=== PATIENT | male | born 1960 | race Caucasian/White ===

== ENCOUNTER 2017-02-11 10:55 | Emergency (ER) | payer BC ==
[~2017-02-11] VITALS: Ht 182.9 cm; Wt 81.8 kg
[~2017-02-11 10:55] MED LIST: ATIVAN 1MG T1 MG/TAB PO; ATIVAN 2MG/ML2 MG/ML IM; CELEBREX 200MG200 MG PO; FOLIC ACID 11 MG/TA1 PO; MUCOMYST PO; NATURE'S BLEND100 M2 PO; NO HOME MEDICATIONS; PRINIVIL40 MG PO; THERAGRAN TAB1 UDTAB PO; TYLENOL EXTRA500 M1 PO; UNABLE
[2017-02-11 10:58] VITALS: BP 152/97; TEMP 98.7
[2017-02-11 11:39] LABS: BASO % 0.3 % (0.0-2.0); EOS # 0.1 (0.0-0.7); EOS % 1.2 % (0-4.0); GRAN # 3.8 (1.4-6.5); GRAN % 63.3 % (42.2-75.2); HEMATOCRIT 46.7 % (42.0-52.0); LYMPH # 1.7 (1.2-3.4); LYMPH % 27.2 % (20.0-51.0); MEAN CELL VOLUME 90 fl (80.0-100.0); MEAN CORPUSCULAR HEMOGLOBIN 31 pg (27.0-31.0); MEAN CORPUSCULAR HGB CONC 34 g/dl (33.0-37.0); MEAN PLATELET VOLUME 10.4 fl (7.4-10.4); MONO # 0.5 (0.1-0.6); MONO % 7.8 % (1.7-9.3); PLATELET COUNT 163 K/mm3 (130-400); RED BLOOD COUNT 5.22 M/mm3 (4.20-5.60); REDCELL DISTRIBUTION WIDTH-CV 13.4 % (11.5-14.5); WHITE BLOOD COUNT 6.1 K/mm3 (4.8-10.8)
[2017-02-11 11:57] LABS: ADJUSTED CALCIUM 9.7 mg/dL (8.4-10.2); ALANINE AMINOTRANSFERASE 86 U/L (21-72); ALBUMIN 4.6 gm/dL (3.5-5.0); ALKALINE PHOSPHATASE 65 U/L (50-136); ANION GAP 13 mmol/L (7-16); BILIRUBIN,TOTAL 0.7 mg/dL (0.0-1.0); BLOOD UREA NITROGEN 5 mg/dL (9-20); CALCIUM 10.2 mg/dL (8.4-10.2); CARBON DIOXIDE 26 mmol/L (22-30); CHLORIDE 101 mmol/L (98-107); CREATININE, serum 0.65 mg/dL (0.66-1.25); GLUCOSE 99 mg/dL (74-106); POTASSIUM 4.3 mmol/L (3.4-5.0); SODIUM 140 mmol/L (137-145); TOTAL PROTEIN 7.9 gm/dL (6.4-8.2)
[2017-02-11 12:08] LABS: ACETAMINOPHEN < 10 ug/mL (10-30); SALICYLATE < 1.0 mg/dL
[2017-02-11 12:31] LABS: AMPHETAMINE URINE NEGATIVE; BARBITURATES URINE NEGATIVE; BENZODIAZEPINES URINE NEGATIVE; BUPRENORPHINE URINE NEGATIVE; METHADONE URINE NEGATIVE; OPIATES URINE NEGATIVE; OXYCODONE URINE NEGATIVE; PHENCYCLIDINE URINE NEGATIVE; PROPOXYPHENE URINE NEGATIVE; THC CANNABINOIDS URINE NEGATIVE
[2017-02-11 13:59] VITALS: PULSE 89
== END 2017-02-11 13:59 | disposition home or self-care (01) ==
LOC: COL.ER 10:55
PROVIDERS: Emergency Medicine; Physician Assistant
DX: F32.9 Major depressive disorder, single episode, unspecified (principal); F10.20 Alcohol dependence, uncomplicated; I10 Essential (primary) hypertension; F17.210 Nicotine dependence, cigarettes, uncomplicated; Y90.0 Blood alcohol level of less than 20 mg/100 ml

== ENCOUNTER 2017-08-18 09:14 | Emergency (ER) | payer BC ==
[~2017-08-18] VITALS: Ht 182.9 cm; Wt 84.1 kg
[2017-08-18 09:19] VITALS: TEMP 96
[2017-08-18 09:47] LABS: BASO % 0.5 % (0.0-2.0); EOS # 0.1 (0.0-0.7); EOS % 1.4 % (0-4.0); GRAN # 3.2 (1.4-6.5); GRAN % 58.8 % (42.2-75.2); HEMATOCRIT 44.4 % (42.0-52.0); HEMOGLOBIN 15.2 g/dl (13.5-18.0); LYMPH # 1.6 (1.2-3.4); LYMPH % 29.7 % (20.0-51.0); MEAN CELL VOLUME 91 fl (80.0-100.0); MEAN CORPUSCULAR HEMOGLOBIN 31 pg (27.0-31.0); MEAN CORPUSCULAR HGB CONC 34 g/dl (33.0-37.0); MONO # 0.5 (0.1-0.6); MONO % 9.4 % (1.7-9.3); PLATELET COUNT 119 K/mm3 (130-400); RED BLOOD COUNT 4.87 M/mm3 (4.20-5.60); WHITE BLOOD COUNT 5.5 K/mm3 (4.8-10.8)
[2017-08-18 09:58] LABS: ADJUSTED CALCIUM 9.5 mg/dL (8.4-10.2); ALBUMIN 4.4 gm/dL (3.5-5.0); BILIRUBIN,TOTAL 0.9 mg/dL (0.0-1.0); CALCIUM 9.8 mg/dL (8.4-10.2); CREATININE, serum 0.7 mg/dL (0.66-1.25); POTASSIUM 3.9 mmol/L (3.4-5.0); TOTAL PROTEIN 7.5 gm/dL (6.4-8.2)
[2017-08-18 13:12] LABS: COLLECTION METHOD CLEAN CATCH
[2017-08-18 13:23] LABS: MUCOUS Present /lpf; PH 6 (5-8); SQUAMOUS EPITHELIAL None Seen /hpf; URINE APPEARANCE Clear; URINE BACTERIA None Seen /hpf; URINE BILIRUBIN Negative (NEGATIVE); URINE BLOOD Negative (NEGATIVE); URINE COLOR Amber; URINE GLUCOSE Negative (NEGATIVE); URINE KETONE 2+ (NEGATIVE); URINE LEUKOCYTE ESTERASE Negative (NEGATIVE); URINE PROTEIN(semi-quant) 1+ (NEGATIVE); URINE RBC 0-2 /hpf; URINE WBC 0-2 /hpf
[2017-08-18] MEDS ORDERED: NORCO 325 MG-51 TAB PO (14:32)
[2017-08-18 15:06] VITALS: BP 149/87; PULSE 58
== END 2017-08-18 15:08 | disposition home or self-care (01) ==
LOC: COL.ER 09:14
PROVIDERS: Emergency Medicine
DX: R10.9 Unspecified abdominal pain (principal); F41.9 Anxiety disorder, unspecified; F17.210 Nicotine dependence, cigarettes, uncomplicated
CPT/HCPCS: J1885; J2270; J2405; J7030

== ENCOUNTER 2018-07-01 06:00 | Day surgery (SDC) | payer BC ==
[~2018-07-01] VITALS: Ht 182.9 cm; Wt 76.4 kg
[~2018-07-01 06:00] MED LIST changes: +NORCO 325 MG-51 TAB PO
[2018-07-01 06:20] VITALS: BP 118/77; PULSE 63; TEMP 98.4
[2018-07-01] MEDS ORDERED: PRINZIDE 12.5 M1 TA1 PO (06:20)
[2018-07-01 07:30] VITALS: BP 99/63; PULSE 57
== END 2018-07-01 08:15 | disposition home or self-care (01) ==
LOC: SDCO 06:00
DX: Z12.11 Encounter for screening for malignant neoplasm of colon (principal); B18.2 Chronic viral hepatitis C; D69.6 Thrombocytopenia, unspecified; F41.9 Anxiety disorder, unspecified; F32.9 Major depressive disorder, single episode, unspecified; Z83.71 Family history of colonic polyps; Z86.010 Personal history of colon polyps; R94.5 Abnormal results of liver function studies
CPT/HCPCS: J2250; J2405; J3010; J7030

== ENCOUNTER → 2018-07-29 | Outpatient (CLI) | payer BC ==
[~2018-07-29] VITALS: Ht 182.9 cm; Wt 78.9 kg
[2018-07-29] VITALS (10 sets, daily range): BP systolic 115–138; BP diastolic 68–81; PULSE 52–72
[~2018-07-29] MED LIST changes: +PRINZIDE 12.5 M1 TA1 PO
[2018-07-29 10:27] LABS: PROTHROMBIN TIME 11.6 SECONDS (9.7-12.8)
== END ==
LOC: COL.RAD 09:41
PROVIDERS: Physician Assistant
DX: B18.2 Chronic viral hepatitis C (principal); D69.6 Thrombocytopenia, unspecified

== ENCOUNTER 2019-06-15 10:06 | Emergency (ER) | payer BC ==
[~2019-06-15] VITALS: Ht 182.9 cm; Wt 75.5 kg
[2019-06-15 10:54] LABS: HEMATOCRIT 39.1 % (42.0-52.0); HEMOGLOBIN 13.5 g/dl (13.5-18.0); MEAN CELL VOLUME 90 fl (80.0-100.0); MEAN CORPUSCULAR HEMOGLOBIN 31 pg (27.0-31.0); MEAN CORPUSCULAR HGB CONC 35 g/dl (33.0-37.0); MEAN PLATELET VOLUME 11.6 fl (7.4-10.4); PLATELET COUNT 96 K/mm3 (130-400); RED BLOOD COUNT 4.35 M/mm3 (4.20-5.60); REDCELL DISTRIBUTION WIDTH-CV 14.1 % (11.5-14.5)
[2019-06-15 11:09] LABS: BILIRUBIN,TOTAL 1.1 mg/dL (0.0-1.0); C-REACTIVE PROTEIN 6.1 mg/dL (0.0-0.9); CALCIUM 9.4 mg/dL (8.4-10.2); CREATININE, serum 0.76 (0.66-1.25); POTASSIUM 3.6 mmol/L (3.4-5.0); TOTAL PROTEIN 7.2 gm/dL (6.4-8.2)
[2019-06-15 11:15] LABS: LYMPHOCYTE 3 % (20.0-51.0); MYELOCYTE 1 % (0-0); NEUTROPHILS 93 % (42.0-75.2); PLATELET ESTIMATE DECREASED (NORMAL)
[2019-06-15] MEDS ORDERED: DOXYCYCLINE 10100 MG PO (12:51)
[2019-06-15 13:03] VITALS: BP 116/67; PULSE 68; TEMP 98.2
== END 2019-06-15 13:18 | disposition home or self-care (01) ==
LOC: COL.ER 10:06
PROVIDERS: Physician Assistant
DX: L03.114 Cellulitis of left upper limb (principal); I10 Essential (primary) hypertension; B19.20 Unspecified viral hepatitis C without hepatic coma; F17.210 Nicotine dependence, cigarettes, uncomplicated; F12.90 Cannabis use, unspecified, uncomplicated; Z98.890 Other specified postprocedural states
CPT/HCPCS: J1885; J2405; J7030

== ENCOUNTER → 2020-08-27 | Day surgery (SDC) | payer BC ==
[~2020-08-27] VITALS: Ht 182.9 cm; Wt 78.3 kg
[~2020-08-27] MED LIST changes: +BENTYL 10MG10 MG/CAP PO; +CEPHALEXIN500 M1 PO; +DOXYCYCLINE 10100 MG PO; +PRINIVIL20 MG PO; +PROTONIX 40MG T40 MG PO
[2020-08-27 07:07] VITALS: BP 133/78; PULSE 69; TEMP 97.8
[2020-08-27 09:05] VITALS: BP 122/74; PULSE 59
--- NOTE | 2020-08-27 09:05 | NUR ---
Patient returns to bay 4 per cart and transfers from cart to recliner with one person assist. IV fluids continue to infuse and site is free of redness. Temp 98.0. Denies nausea or difficulty swallowing. Call light in reach.
[2020-08-27 09:20] VITALS: BP 124/78; PULSE 56
--- NOTE | 2020-08-27 09:20 | NUR ---
Dr. Beauchamp here to talk with the patient and all questions answered.
[2020-08-27 09:35] VITALS: BP 128/73; PULSE 61
--- NOTE | 2020-08-27 09:35 | NUR ---
IV discontinued and site is free of redness. Patient dresses self.
--- NOTE | 2020-08-27 09:47 | NUR ---
Dismissal instructions given and voices understanding of these. Patient dismissed to home driven by daughter and dismissal instructions in hand.
== END ==
LOC: SDCO 06:52
DX: K21.00 Gastro-esophageal reflux disease with esophagitis, without bleeding (principal); K29.30 Chronic superficial gastritis without bleeding; K64.8 Other hemorrhoids; D50.9 Iron deficiency anemia, unspecified; I10 Essential (primary) hypertension; F17.210 Nicotine dependence, cigarettes, uncomplicated; F32.9 Major depressive disorder, single episode, unspecified; F41.9 Anxiety disorder, unspecified; Z20.828 Contact with and (suspected) exposure to other viral communicable diseases
CPT/HCPCS: J2704; J7030

== ENCOUNTER 2023-07-02 05:23 | Day surgery (SDC) | payer MEDICARE ==
[~2023-07-02] VITALS: Ht 182.9 cm; Wt 81.6 kg
[~2023-07-02 05:23] MED LIST changes: +MOTRIN 600600 MG/TAB PO
[2023-07-02] MEDS ORDERED: MOBIC 7.5MG7.5 MG PO (05:36)
[2023-07-02] MEDS ORDERED: PRILOTC (05:36)
[2023-07-02] MEDS ORDERED: CENTRUM SILVER1 TAB (05:37)
[2023-07-02 07:40] VITALS: BP 132/76; PULSE 64; TEMP 97.4
[2023-07-02 07:55] VITALS: BP 138/79; PULSE 58
[2023-07-02 07:59] VITALS: BP 152/88; PULSE 63; TEMP 97.2
--- NOTE | 2023-07-02 08:00 | NUR ---
0740 RETURNS TO ROOM 1 PER CART. AWAKE, ALERT. RESP UNLABORED. AMBULATES TO RECLINER WITH STANDBY ASSIST. VITAL SIGNS OBTAINED. ABD SOFT. DENIES ABD PAIN OR NAUSEA. CALL LIGHT AT SIDE. 0745 TOLERATES WATER WITHOUT NAUSEA. DISCHARGE INSTRUCTIONS REVIEWED. PATIENT VERBALIZES UNDERSTANDING. COPY PROVIDED IN DISCHARGE FOLDER [id number] DR. ROMO HERE TO VISIT WITH PATIENT [id number] PATIENT DRESSES SELF
--- NOTE | 2023-07-02 08:08 | NUR ---
0527 PT AMBULATORY TO BAY 1 WITH STEADY GAIT, BREATHING EVEN AND UNLABORED. PT ALERT AND ORIENTED. CONSENTS REVIEWED AND SIGNED BY PT. IV ESTABLISHED. LR INFUSING VIA GRAVITY AT KVO. CALL LIGHT IN REACH.
== END 2023-07-02 08:03 | disposition home or self-care (01) ==
LOC: SDCO 05:23
DX: Z12.11 Encounter for screening for malignant neoplasm of colon (principal); F17.210 Nicotine dependence, cigarettes, uncomplicated; Z86.010 Personal history of colon polyps
CPT/HCPCS: J2704; J7120

== ENCOUNTER 2024-04-12 20:42 | Inpatient (IN) | payer MEDICARE ==
[~2024-04-12] VITALS: Ht 182.9 cm; Wt 80.4 kg
[~2024-04-12 20:42] MED LIST changes: +CENTRUM SILVER1 TAB; +MOBIC 7.5MG7.5 MG PO; +PRILOTC PO
[2024-04-12] MEDS ORDERED: HYDROmorphone 0.5 MG/0.5 ML SYRINGE IV ONE ×2 (21:00→22:00)
[2024-04-12] MEDS ORDERED: NS 500 ML IV ONE (21:00)
[2024-04-12] MEDS ORDERED: Ondansetron 4 MG/2 ML VIAL IV ONE (21:00)
[2024-04-12 21:06] LABS: BASO % 0.2 % (0.0-2.0); EOS % 0.1 % (0.0-4.0); GRAN # 12.9 K/mm3 (1.4-6.5); GRAN % 81.5 % (42.2-75.2); HEMATOCRIT 30.3 % (42.0-52.0); HEMOGLOBIN 9.4 g/dl (13.5-18.0); LYMPH # 1.4 K/mm3 (1.2-3.4); LYMPH % 8.6 % (20.0-51.0); MEAN CELL VOLUME 76 fl (80.0-100.0); MEAN CORPUSCULAR HEMOGLOBIN 23 pg (27-31); MEAN CORPUSCULAR HGB CONC 31 g/dl (33.0-37.0); MEAN PLATELET VOLUME 10.3 fl (7.4-10.4); MONO # 1.5 K/mm3 (0.1-0.6); MONO % 9.2 % (1.7-9.3); PLATELET COUNT 469 K/mm3 (130-400); RED BLOOD COUNT 4.01 M/mm3 (4.20-5.60); REDCELL DISTRIBUTION WIDTH-CV 18.6 % (11.5-14.5)
[2024-04-12 21:18] LABS: ALBUMIN 2.4 g/dL (3.4-4.8); BILIRUBIN,TOTAL 1.1 mg/dL (0.2-1.2); CALCIUM 9.3 mg/dL (8.4-10.2); CREATININE, serum 0.69 mg/dL (0.72-1.25); POTASSIUM 4.1 mEq/L (3.5-4.5); TOTAL PROTEIN 6.9 g/dl (6.2-8.1)
[2024-04-12] MEDS ORDERED: oxyCODONE/Acetaminophen 7.5-325 MG TAB PO ONE (22:00)
[2024-04-12] MEDS ORDERED: NS 1,000 ML IV ONE (22:00)
[2024-04-12 22:20] LABS: INR 1.9 (0.8-3.0); PROTHROMBIN TIME 20.5 SECONDS (9.7-12.8)
[2024-04-12 22:23] LABS: PARTIAL THROMBOPLASTIN TIME 35.2 SECONDS (26.0-37.0)
[2024-04-12 23:10] LABS: ARTERIAL BLD GAS O2 SATURATION 89.7 % (92-100); ARTERIAL BLD GAS TCO2 CT 23.6; ARTERIAL BLOOD GAS BASE EXCESS -0.9 (-2-2); ARTERIAL BLOOD GAS HCO3 22.6 meq/L (22-26); ARTERIAL BLOOD GAS PCO2 33.2 mmHg (35-45); ARTERIAL BLOOD GAS PO2 62.4 mmHg (80-100); ARTERIAL BLOOD GAS pH 7.45 (7.35-7.45)
[2024-04-13] VITALS (9 sets, daily range): BP systolic 119–133; BP diastolic 72–78; PULSE 80–109; TEMP 98.2–100
[2024-04-13] MEDS ORDERED: Cefepime 1 G in Water For Injection,Sterile 10 ML IV ONE (00:15)
[2024-04-13] MEDS ORDERED: Iohexol 300 - 100 ML VIAL IV ONE (01:07)
[2024-04-13 02:35] LABS: COLLECTION METHOD CLEAN CATCH
[2024-04-13 03:01] LABS: PH 5.5 (5.0-8.5); URINE APPEARANCE CLEAR (CLEAR/HAZY); URINE BLOOD NEGATIVE (NEGATIVE); URINE COLOR Dark Yellow (YELLOW); URINE GLUCOSE NEGATIVE (NEGATIVE); URINE KETONE NEGATIVE (NEGATIVE); URINE NITRATE NEGATIVE (NEGATIVE); URINE PROTEIN(semi-quant) TRACE (NEGATIVE)
[2024-04-13] MEDS ORDERED: Albuterol/Ipratropium 3 MG-0.5 MG/3 ML Neb Soln IH ONE (03:15)
[2024-04-13] MEDS ORDERED: Albuterol/Ipratropium 3 MG-0.5 MG/3 ML Neb Soln IH PRN (04:45)
--- NOTE | 2024-04-13 05:37 | NUR ---
REPORT RECIEVED FROM GHULAM HASSAN-ED
[2024-04-13] MEDS ORDERED: ELIQUIS 5MG PO (05:42)
[2024-04-13] MEDS ORDERED: ULTRAM 50MG TAB50 MG PO (05:43)
[2024-04-13] MEDS ORDERED: traMADol 50 MG TAB PO PRN (05:45)
[2024-04-13] MEDS ORDERED: Cefepime 1 G in Water For Injection,Sterile 10 ML IV SCH (07:30)
[2024-04-13] MEDS ORDERED: LR 1,000 ML IV SCH (07:30)
--- NOTE | 2024-04-13 07:33 | NUR ---
awake resting in bed, bedside shift report received from Nora, RN
[2024-04-13] MEDS ORDERED: Morphine 4 MG/ML VIAL IV PRN (07:45)
[2024-04-13] MEDS ORDERED: Albuterol/Ipratropium 3 MG-0.5 MG/3 ML Neb Soln IH SCH (08:00)
[2024-04-13] MEDS ORDERED: Pantoprazole 40 MG in NS 10 ML IV SCH (09:00)
[2024-04-13] MEDS ORDERED: Apixaban 5 MG TABLET PO SCH (09:00)
--- NOTE | 2024-04-13 10:15 | NUR ---
resting in bed, c/o pain to upper left side and back, medicated with morphine 2mg slow IV, full assessment completed, see interventions for further info
--- NOTE | 2024-04-13 11:08 | NUR ---
resting in bed with eyes closed, no grimacing or moaning at this time
[2024-04-13] MEDS ORDERED: fentaNYL 25 MCG 72 HR PATCH TD SCH (12:00)
[2024-04-13] MEDS ORDERED: oxyCODONE 5 MG TAB PO PRN (12:00)
--- NOTE | 2024-04-13 12:00 | NUR ---
Dr Zheng and care team in to see patient, discussed pain managment and fentanyl patch 25mcg placed, sprague cath discontinued and tolerated well,
--- NOTE | 2024-04-13 14:30 | NUR ---
c/o pain 01/25 and medicated with roxicodone 5mg po, had small amount lunch, watching TV
--- NOTE | 2024-04-13 15:57 | NUR ---
Technical Applications Specialist and student, Adrianna met with patient to discuss discharge planning. Patient lives alone in [place] and sees Dr. Lewis for primary care. Patient gets medications from [facility] and does not use any DME. Patient is not on oxygen normally however is currently requiring it. Patient is normally independent with ADLS and plans to return home at time of discharge. Danny does not have DPOA-HC but stated he will consider creating one during this hospital stay. Patient has two daughters, Barbie and Rakel. Patient's sister, Cristela (ph#[phone]) is listed as patient's contact and patient stated she drives him to his medical appointments. Discharge Plan: Home, currently on oxygen, may need DPOA-HC
--- NOTE | 2024-04-13 18:07 | NUR ---
ambulated into bathroom and voided 200ml clear dark jeanmarie urine
--- NOTE | 2024-04-13 18:14 | NUR ---
FEED HOUSE SUPERVISOR performed post void residual and revealed approx 700ml urine
--- NOTE | 2024-04-13 18:20 | NUR ---
attempted to call PHYLLIS Woody without an answer
--- NOTE | 2024-04-13 18:22 | NUR ---
spoke with PHYLLIS Woody regarding post void residual, unsure if this is urine or if there is something more that is showing up, will continue to monitor urinary output
--- NOTE | 2024-04-13 18:59 | NUR ---
bedside shift repeort given to Nora, RN
--- NOTE | 2024-04-13 19:25 | NUR ---
REPORT RECIEVED FROM MARLIN. 2 NURSE VERIFICATION OF FENTANLY PATCH LOCATION POSTERIOR LT SHOULDER VISIABLE AND INTACT.
--- NOTE | 2024-04-13 19:43 | NUR ---
PATIENT SITTING ON BEDSIDE EATING DINNER TRAY. AXO X4 AND CHEERFUL. 7ML/HR LR RUNNING IN RT AC. LUNG SOUNDS CLEAR. PATIENT DENIES PAIN OR SOA, HOWEVER MCKEON COULD BE OBSERVED DURING ASSESMENT QUESTIONS. PATIENT STILL APPEARS TO BE SLIGHTLY JAUNDICE. VS ARE WNL. CALL LIGHT WITHIN REACH.
--- NOTE | 2024-04-13 23:15 | NUR ---
PATIENT C/O 05/27 UPPER GASTRIC AND LT FLANK AND BACK PAIN. PRN SYLVAIN ADMINISTERED.
[2024-04-14] VITALS (13 sets, daily range): BP systolic 112–130; BP diastolic 69–77; PULSE 90–98; TEMP 98.1–98.8
--- NOTE | 2024-04-14 00:20 | NUR ---
PATIENT PAIN UNRELIEVED STILL RATE 05/27. PER PARAMETERS, ADDITIONAL 5MG DOSE SYLVAIN ADMINISTERED.
--- NOTE | 2024-04-14 01:52 | NUR ---
PATIENT NOW RESTING. IVF HAS BEEN SALINE LOCKED.
--- NOTE | 2024-04-14 02:13 | NUR ---
PATIENT VOIDED 300ML DARK KIM URINE.
[2024-04-14 07:27] LABS: BASO % 0.2 % (0.0-2.0); EOS % 0.4 % (0.0-4.0); GRAN # 9.4 K/mm3 (1.4-6.5); GRAN % 83.7 % (42.2-75.2); LYMPH # 0.8 K/mm3 (1.2-3.4); LYMPH % 7.1 % (20.0-51.0); MEAN CELL VOLUME 76 fl (80.0-100.0); MEAN CORPUSCULAR HGB CONC 31 g/dl (33.0-37.0); MONO # 0.9 K/mm3 (0.1-0.6); MONO % 8.2 % (1.7-9.3); PLATELET COUNT 375 K/mm3 (130-400); RED BLOOD COUNT 3.77 M/mm3 (4.20-5.60); REDCELL DISTRIBUTION WIDTH-CV 18.8 % (11.5-14.5)
[2024-04-14 07:40] LABS: HEMATOCRIT 28.7 % (42.0-52.0); HEMOGLOBIN 8.9 g/dl (13.5-18.0); MEAN CORPUSCULAR HEMOGLOBIN 24 pg (27-31)
[2024-04-14 07:45] LABS: ALBUMIN 2.4 g/dL (3.4-4.8); CALCIUM 8.6 mg/dL (8.4-10.2); CREATININE, serum 0.63 mg/dL (0.72-1.25); TOTAL PROTEIN 6.9 g/dl (6.2-8.1)
--- NOTE | 2024-04-14 09:00 | NUR ---
PATIENT LAYING IN BED UPON ENTERING ROOM, REPORTS 8/10 PAIN TO ABDOMEN, PRN MEDICATION PROVIDED PER eMAR, FENTANYL PATCH DOSE INCREASED. NEW PATCH PLACED TO LUE AND OLD PATCH REMOVED AND WASTED. SHIFT ASSESSMENT COMPLETED. 2L O2 VIA NC. REPORTS SOB, STATES IT HAS NOT WORSENED SINCE ADMISSION. DENIES ANY ADDITIONAL NEEDS AT THIS TIME. CALL LIGHT WITHIN REACH, WILL CONTINUE TO MONITOR.
[2024-04-14] MEDS ORDERED: fentaNYL 50 MCG 72 HR PATCH TD SCH (10:00)
[2024-04-14] MEDS ORDERED: fentaNYL Patch Removal/Drugbuster TD SCH (10:00)
--- NOTE | 2024-04-14 20:40 | NUR ---
PATIENT UP WALKING IN ROOM WITH TV ON WITH NO FAMILY PRESENT WTIH NO ACUTE DISTRESS NOTED. PATIENT ON 2 LITERS OF OXYGEN VIA NC. INT TO RIGHT AC INTACT WITH NO COMPLICATIONS NOTED. PATIENT C/O PAIN. RATES PAIN 10/10. ASSESSMENT AND MEDICATION ADMINISTRATION COMPLETED. PATIENT GIVEN IV MORPHINE FOR PAIN. PATIENT TOLERATED WELL. PATIENT DENIES ANY OTHER NEEDS AT THIS TIME. PATIENT ENCOURAGED TO CALL BEFORE GETTING UP AND IS LAYING DOWN IN BED ON RIGHT SIDE. BED IN LOW POSITION WITH WHEELS LOCKED WITH RAILS UP X3 AND CALL LIGHT WITHIN REACH.
--- NOTE | 2024-04-14 22:15 | NUR ---
PATIENT C/O PAIN. PO OXYCODONE GIVEN PER MD ORDER. PATIENT STATES PAIN LEVEL IS 8/10.
--- NOTE | 2024-04-14 22:49 | NUR ---
PATIENT C/O PAIN. PATIENT STATES PAIN LEVEL IS 6/10. IV MORPHINE GIVEN PER MD ORDER. PATIENT TOLERATED WELL.
[2024-04-15] VITALS (11 sets, daily range): BP systolic 112–133; BP diastolic 57–79; PULSE 87–106; TEMP 98–98.5
--- NOTE | 2024-04-15 02:29 | NUR ---
PATIENT C/O PAIN. PATIENT STATES PAIN LEVEL IS 5/10. PO OXYCODONE GIVEN. MEDICATION ADMINISTRATION COMPLETED. SEE EMAR. PATIENT TOELRATED WELL. ALL NEEDS MET. BED IN LOW POSITION WITH WHEELS LOCKED WITH RAILS UP X3 AND CALL LIGHT WITHIN REACH.
[2024-04-15 06:41] LABS: BASO % 0.4 % (0.0-2.0); EOS # 0.1 K/mm3 (0.0-0.7); EOS % 1.3 % (0.0-4.0); GRAN # 6.1 K/mm3 (1.4-6.5); GRAN % 79.6 % (42.2-75.2); LYMPH # 0.8 K/mm3 (1.2-3.4); LYMPH % 9.9 % (20.0-51.0); MEAN CELL VOLUME 76 fl (80.0-100.0); MEAN CORPUSCULAR HGB CONC 32 g/dl (33.0-37.0); MEAN PLATELET VOLUME 10.1 fl (7.4-10.4); MONO # 0.6 K/mm3 (0.1-0.6); MONO % 8.4 % (1.7-9.3); PLATELET COUNT 347 K/mm3 (130-400); RED BLOOD COUNT 3.48 M/mm3 (4.20-5.60); REDCELL DISTRIBUTION WIDTH-CV 18.3 % (11.5-14.5)
[2024-04-15 06:53] LABS: HEMATOCRIT 26.3 % (42.0-52.0); HEMOGLOBIN 8.3 g/dl (13.5-18.0); MEAN CORPUSCULAR HEMOGLOBIN 24 pg (27-31)
[2024-04-15 07:04] LABS: ALBUMIN 2.3 g/dL (3.4-4.8); BILIRUBIN,TOTAL 0.9 mg/dL (0.2-1.2); CALCIUM 8.6 mg/dL (8.4-10.2); CREATININE, serum 0.61 mg/dL (0.72-1.25); POTASSIUM 4.6 mEq/L (3.5-4.5); TOTAL PROTEIN 6.3 g/dl (6.2-8.1)
[2024-04-15] MEDS ORDERED: Vancomycin 1.5 GM,Special Dose/Pharmacy Prepared 1.5 GM in NS 250 ML IV SCH (11:00)
[2024-04-15] MEDS ORDERED: oxyCODONE 5 MG TAB PO PRN (11:45)
--- NOTE | 2024-04-15 13:49 | NUR ---
Patient alert and oriented x4. Activity at baseline. Complains of ongoing pain to left side and back, PRN morphine administered with morning medications. Upon reassessment pain had only gone from 7/10 to 6/10, PRN Roxicodone administered. Pain not managed enough with 5mg Roxicodone, level increased to 7 or 8/10. Dr. Zheng increased Roxicodone to 10mg and extra dose administered by GHULAM Naranjo. Pain level down to 3/10. Family at bedside. Vancomycin trough low, pharmacy notified and dose adjusted. Call light within reach, all needs met at this time.
--- NOTE | 2024-04-15 15:05 | NUR ---
Data: [facility] visit attempted during Consulting Services Manager rounds. Patient had visitors. Patient requested a visit another day. Assessment: None at this time. Patient declined at this time. Plan of Care: Chaplains will remain available as needed requested while Patient is admitted to this hospital.
[2024-04-16] VITALS (8 sets, daily range): BP systolic 111–128; BP diastolic 62–76; PULSE 79–96; TEMP 98.1–98.5
--- NOTE | 2024-04-16 06:45 | NUR ---
appears to be sleeping, bedside shift report received from GHULAM Young
--- NOTE | 2024-04-16 07:20 | NUR ---
THE PATIENT RESTED WELL OVERNIGHT AND REPORTED NO PAIN. THE 50 MCG FENTANYL PATCH WAS VERIFIED WITH THE ON-COMING NURSE GHULAM HERNANDEZ. THE PATCH IS ON THE PATIENTS LEFT SHOULDER. THE PATIENT DID RATE HIS GENERALIZED PAIN THIS MORNING 7/10 AND PRN OXYCODONE WAS PROVIDED. NO OTHER NEEDS MENTIONED AT THIS TIME. CALL LIGHT AND PERSONAL BELONGINGS WITHIN REACH.
--- NOTE | 2024-04-16 08:25 | NUR ---
sitting up on side of bed eating breakfast
--- NOTE | 2024-04-16 09:15 | NUR ---
appears to be dozing, in bed with lights off and eyes closed
--- NOTE | 2024-04-16 09:30 | NUR ---
looking at TV, full assessment completed, see interventions for further info, c/o pain 03/27 and medicated with roxicodone 10mg po
--- NOTE | 2024-04-16 10:50 | NUR ---
sitting up on edge of bed, states pain is better after pain pill, Dr Zheng in to see patient
--- NOTE | 2024-04-16 11:23 | NUR ---
SW met with patient to discuss Medicare IM form in anticipation of discharge tomorrow. Patient agreeable to discharge and signed form, original on chart, copy provided to patient.
--- NOTE | 2024-04-16 11:40 | NUR ---
resting in bed talking on phone, IV fluids stopped at this time
--- NOTE | 2024-04-16 12:55 | NUR ---
IV to right Antecubital is leaking, discontinued and new IV started in right forearm
--- NOTE | 2024-04-16 13:31 | NUR ---
sitting up on side of bed having lunch
--- NOTE | 2024-04-16 14:30 | NUR ---
appears to be sleeping, in bed with lights off, eyes closed, resp quiet and easy
--- NOTE | 2024-04-16 16:30 | NUR ---
is awake now and c/o pain 04/26, medicated with roxicodone 10mg po per his request
--- NOTE | 2024-04-16 18:48 | NUR ---
bedside shift report given to GHULAM Young
[2024-04-17 00:27] VITALS: BP 124/74; PULSE 88; TEMP 98.1
--- NOTE | 2024-04-17 03:52 | NUR ---
NURSING SHIFT ASSESSMENT COMPLETED. THE PATIENT WAS ALERT AND ORIENTED. THE PATIENT REPORTED LEFT UPPER AND LOWER QUAD PAIN THAT RADIATES TO HIS BACK 04/26. OXYCODONE 10 MG ORDERED. TIME OF NEXT DOSE PROVIDED. THE PATIENT DENIED NEEDS AT THIS TIME. THE PTS 50 MCG FENTANYL PATCH IS IN PLACE ON HIS LEFT ARM. THIS WAS ALSO VERIFIED AT SHIFT CHANGE WITH THE OFF GOING NURSE GHULAM HERNANDEZ. NO OTHER NEEDS AT THIS TIME. CALL LIGHT WITHIN REACH. THE PATIENT IS UP INDEPENDENTLY IN HIS ROOM.
[2024-04-17 04:04] VITALS: BP 125/75; PULSE 88; TEMP 98.4
[2024-04-17 06:51] LABS: BASO % 0.5 % (0.0-2.0); EOS # 0.1 K/mm3 (0.0-0.7); EOS % 1.3 % (0.0-4.0); GRAN % 80.1 % (42.2-75.2); LYMPH # 0.6 K/mm3 (1.2-3.4); LYMPH % 9.3 % (20.0-51.0); MEAN CELL VOLUME 75 fl (80.0-100.0); MEAN CORPUSCULAR HGB CONC 32 g/dl (33.0-37.0); MONO # 0.5 K/mm3 (0.1-0.6); MONO % 8.5 % (1.7-9.3); PLATELET COUNT 337 K/mm3 (130-400); RED BLOOD COUNT 3.63 M/mm3 (4.20-5.60); REDCELL DISTRIBUTION WIDTH-CV 18.1 % (11.5-14.5)
[2024-04-17 07:02] LABS: HEMATOCRIT 27.3 % (42.0-52.0); HEMOGLOBIN 8.6 g/dl (13.5-18.0); MEAN CORPUSCULAR HEMOGLOBIN 24 pg (27-31)
[2024-04-17 07:33] LABS: ALBUMIN 2.2 g/dL (3.4-4.8); BILIRUBIN,TOTAL 0.9 mg/dL (0.2-1.2); CALCIUM 8.2 mg/dL (8.4-10.2); CREATININE, serum 0.6 mg/dL (0.72-1.25); MAGNESIUM 1.9 mg/dL (1.6-2.6); TOTAL PROTEIN 6.2 g/dl (6.2-8.1)
[2024-04-17 08:00] VITALS: BP_SYST 124
--- NOTE | 2024-04-17 08:03 | NUR ---
DURING BEDSIDE REPORT THE PTS 50 MCG FENTANYL PATCH WAS VERIFIED TO BE ON HIS LEFT DELTOID. CARE TRANSFERRED TO GHULAM FUENTES.
[2024-04-17 08:21] VITALS: BP 124/77; PULSE 82; TEMP 98.1
[2024-04-17] MEDS ORDERED: OMNICEF 300MG300 MG PO (08:30)
[2024-04-17] MEDS ORDERED: DOXYCYCLINE 10100 MG PO (08:31)
[2024-04-17] MEDS ORDERED: FENTANYL 50MCG TD (08:32)
[2024-04-17] MEDS ORDERED: DAZIDOX10 MG PO (08:32)
--- NOTE | 2024-04-17 09:07 | NUR ---
patient requires 2 lpm at rest and 3 lpm while walking to keep <88%.
--- NOTE | 2024-04-17 10:34 | NUR ---
scaffold worker notes pt requires 2-3 liters of oxygen. SW met with pt to get his prefernce on agency, pt wanted the closest. SW stated this would be [facility]. Pt verbalized agreement. GIL emailed DME oxygen order to [facility]. Discharge Plan: home with oxygen
[2024-04-17 11:21] VITALS: BP 123/79; PULSE 95; TEMP 98
[2024-04-17 12:54] VITALS: BP_SYST 123
--- NOTE | 2024-04-17 13:06 | NUR ---
0900- SHIFT ASSESSMENT COMPLETED AT THIS TIME. MORNING MEDICATIONS ADMINISTERED AT THIS TIME. PATIENT REQUESTS PAIN MEDICATION. ROXICODONE ADMINISTERED PO FOR COMPLAINTS OF 6/10 PAIN LOCATED LEFT FLANK. PT INDEPENDENT IN ROOM. CURRENTLY WAITING FOR HOME OXYGEN TO BE DELIVERED THEN PLAN FOR DISCHARGE THIS AFTERNOON. CALL LIGHT WITHIN REACH.
--- NOTE | 2024-04-17 14:50 | NUR ---
PT DRESSED AND SITTING ON EDGE OF BED. DISCHARGE INSTRUCTIONS GIVEN AT THIS TIME. INT DC'D. PT GOING HOME ON OXYGEN (DELIVERED BY DME). PT ESCORTED TO PRIVATE VEHICLE VIA WHEELCHAIR AND DISCHARGED HOME WITH FRIEND.
== END 2024-04-17 14:50 | disposition home or self-care (01) | DRG 871 ==
LOC: COL.ER 20:42 → MEDICAL 04-13 04:50
PROVIDERS: Internal Medicine; Nurse Practitioner Family; ADMIT Internal Medicine
DX: A41.9 Sepsis, unspecified organism (principal); I82.0 Budd-Chiari syndrome; J18.9 Pneumonia, unspecified organism; J96.01 Acute respiratory failure with hypoxia; E44.0 Moderate protein-calorie malnutrition; Q60.0 Renal agenesis, unilateral; E87.20 Acidosis, unspecified; E87.1 Hypo-osmolality and hyponatremia; C78.00 Secondary malignant neoplasm of unspecified lung; Z66 Do not resuscitate; E83.52 Hypercalcemia; D50.9 Iron deficiency anemia, unspecified; R33.9 Retention of urine, unspecified; R74.01 Elevation of levels of liver transaminase levels; R59.1 Generalized enlarged lymph nodes; B18.2 Chronic viral hepatitis C; K74.60 Unspecified cirrhosis of liver; R73.9 Hyperglycemia, unspecified; R91.8 Other nonspecific abnormal finding of lung field; I10 Essential (primary) hypertension; Z87.891 Personal history of nicotine dependence; Z86.711 Personal history of pulmonary embolism; Z85.05 Personal history of malignant neoplasm of liver; Z79.01 Long term (current) use of anticoagulants; Z79.899 Other long term (current) drug therapy; Z23 Encounter for immunization; Z68.23 Body mass index [BMI] 23.0-23.9, adult
CPT/HCPCS: C9113; J0692; J1170; J2270; J2405; J3370; J7030; J7040; J7050; J7120; Q9967